=== PATIENT | male | born 1980 | race Caucasian/White ===

== ENCOUNTER 2018-08-07 14:51 | Emergency (ER) | payer MEDICAID ==
[~2018-08-07] VITALS: Ht 167.6 cm; Wt 93.3 kg
[2018-08-07 14:55] VITALS: BP 136/82; PULSE 71; RESP 18; Ht 167.6 cm; Wt 93.3 kg
[2018-08-07] MEDS ORDERED: FAMOTIDINE 20 MG TAB PO STA (15:26)
[2018-08-07] MEDS ORDERED: LIDOCAINE/MYLANTA 40 ML BTL PO STA (15:26)
[2018-08-07] MEDS ORDERED: ACETAMINOPHEN 325 MG TAB PO ONE (15:30)
[2018-08-07] MEDS ORDERED: ACET500C5 PO (16:36)
[2018-08-07] MEDS ORDERED: PANT40TA3 PO (16:36)
--- NOTE | 2018-08-07 16:38 | ERD ---
ER Documentation Chief Complaint Chief Complaint chest pain/epigastric pain x 20 days , worse today , no sob HPI 38-year-old male presents with lower chest pain or epigastric pain for the last 3 weeks. He is unable to characterize the pain but is possibly sharp. Denies any fevers, vomiting, abdominal pain, urinary complaints, diarrhea. He has not been seen for this prior. ROS All systems reviewed and are negative except as per history of present illness. Medications Home Meds Active Scripts Acetaminophen* (Tylophen*) 500 Mg Capsule, 1 CAP PO Q6H PRN for PAIN AND OR EL EVATED TEMP, #15 CAP Prov:VERÓNICA IBRAHIM MD 08/07/18 Pantoprazole* (Protonix*) 40 Mg Tablet.dr, 40 MG PO DAILY, #20 TAB Prov:VERÓNICA IBRAHIM MD 08/07/18 PMhx/Soc Medical and Surgical Hx: pt denies Medical Hx, pt denies Surgical Hx Hx Alcohol Use: No Hx Substance Use: No Hx Tobacco Use: No FmHx Family History: No diabetes, No coronary disease, No other Physical Exam Vitals Vital Signs Date Temp Pulse Resp B/P (MAP) Pulse Ox O2 O2 Flow FiO2 Time Delivery Rate 08/07/18 98.1 71 18 136/82 97 14:55 (100) Physical Exam Const: No acute distress Head: Atraumatic Eyes: Normal Conjunctiva ENT: Normal External Ears, Nose and Mouth. Neck: Full range of motion. No meningismus. Resp: Clear to auscultation bilaterally Cardio: Regular rate and rhythm, no murmurs Abd: Soft, normal tenderness in the epigastric and xiphoid area. No exquisite Forrester sign and no tenderness McBurney's point. No rebound or masses. Non distended. Normal bowel sounds Skin: No petechiae or rashes Back: No midline or flank tenderness Ext: No cyanosis, or edema Neur: Awake and alert Psych: Normal Mood and Affect Result Diagram: 08/07/18 1534 08/07/18 1534 Results 24 hrs Laboratory Tests Test 08/07/18 15:34 White Blood Count 7.4 10^3/ul Red Blood Count 4.97 10^6/ul Hemoglobin 14.6 g/dl Hematocrit 44.2 % Mean Corpuscular Volume 88.9 fl Mean Corpuscular Hemoglobin 29.4 pg Mean Corpuscular Hemoglobin Concent 33.0 g/dl Red Cell Distribution Width 11.9 % Platelet Count 202 10^3/UL Mean Platelet Volume 9.7 fl Immature Granulocytes % 0.300 % Neutrophils % 59.0 % Lymphocytes % 29.3 % Monocytes % 6.5 % Eosinophils % 3.9 % Basophils % 1.0 % Nucleated Red Blood Cells % 0.0 /100WBC Immature Granulocytes # 0.020 10^3/ul Neutrophils # 4.3 10^3/ul Lymphocytes # 2.2 10^3/ul Monocytes # 0.5 10^3/ul Eosinophils # 0.3 10^3/ul Basophils # 0.1 10^3/ul Nucleated Red Blood Cells # 0.0 10^3/ul Sodium Level 140 mmol/L Potassium Level 3.6 mmol/L Chloride Level 105 mmol/L Carbon Dioxide Level 27 mmol/L Anion Gap 8 Blood Urea Nitrogen 12 mg/dl Creatinine 0.96 mg/dl Est Glomerular Filtrat Rate mL/min > 60 mL/min Glucose Level 114 mg/dl Calcium Level 9.0 mg/dl Total Bilirubin 0.4 mg/dl Direct Bilirubin 0.00 mg/dl Indirect Bilirubin 0.4 mg/dl Aspartate Amino Transf (AST/SGOT) 23 IU/L Alanine Aminotransferase (ALT/SGPT) 35 IU/L Alkaline Phosphatase 67 IU/L Total Protein 7.2 g/dl Albumin 4.1 g/dl Globulin 3.10 g/dl Albumin/Globulin Ratio 1.32 Lipase 80 U/L Current Medications Medications Dose Sig/Rafaela Start Time Status Last (Trade) Ordered Route PRN Stop Time Admin Dose Reason Admin Famotidine 20 mg ONCE STAT 08/07/18 DC 08/07/18 (Pepcid) PO 15:26 15:34 08/07/18 15:28 40 ml ONCE STAT 08/07/18 DC 08/07/18 Miscellaneous PO 15:26 15:34 Medication 08/07/18 15:28 (Gi Cocktail (2)) 650 mg ONCE ONCE 08/07/18 DC 08/07/18 Acetaminophen PO 15:30 15:34 (Tylenol 08/07/18 15:31 Tab) Procedures/MDM EKG: Rate/Rhythm: Normal Sinus Rhythm. Rate equals 72 QRS, ST, T-waves: No changes consistent w/ acute ischemia Impression: No evidence of ischemia or arrhythmia Chest X-ray 1V Interpreted by me: Soft Tissue: No acute abnormalities Bones: No acute abnormalities Mediastinum/Cardiac Silhouette/Lungs: No acute abnormalities. Impression- normal 1 view chest x-ray Right upper quadrant ultrasound read as normal by the radiologist. BC and CMP and lipase normal. Presents with lower chest pain abdominal pain for last 3 weeks. He is noticed since symptoms of cardiac chest pain or acute coronary syndrome, surgical abdomen, pancreatitis, additional emergent cause of presenting complaints. He may have gastritis and will treat for this. Will treat with Protonix, Tylenol, primary care follow-up and return precautions. The patient was stable with no new complaints during the ER course. Clinically, there is no current evidence to suggest meningitis, sepsis, acute abdomen, pneumonia, stroke, acute coronary syndrome, pulmonary embolism, aortic dissection or any other emergent condition appearing to require further evaluation or hospitalization. Patient counseled regarding my diagnostic impression and care plan. Prior to discharge all questions answered. Pt agrees with treatment plan and understands strict return precautions. Pt is instructed to follow up with primary care provider within 24- 48 hours. Precautionary instructions provided including instructions to return to the ER if not improving or for any worsening or changing symptoms or concerns. Disclaimer: Inadvertent spelling and grammatical errors are likely due to EHR/dictation software use and do not reflect on the overall quality of patient care. Also, please note that the electronic time recorded on this note does not necessarily reflect the actual time of the patient encounter. Departure Diagnosis: Primary Impression: Abdominal pain Abdominal location: epigastric Qualified Codes: R10.13 - Epigastric pain Additional Impression: Chest pain Chest pain type: unspecified Qualified Codes: R07.9 - Chest pain, unspecified Condition: Stable Patient Instructions: Abdominal Pain, Gastritis (Adult) Additional Instructions: All examinations normal today. We will treat for gastritis. Recheck for new worsening symptoms with primary care doctor. Examines normal hoy. vamos a tratar para gastritis. Cheque otro vez con schuler doctor primario en el proximo riley or regresa para mas o nueva simptomas. VERÓNICA IBRAHIM MD Aug 07, 2018 16:38
== END 2018-08-07 17:01 | disposition home or self-care (01) ==
LOC: FTE 14:51
DX: R07.9 Chest pain, unspecified (principal); R10.13 Epigastric pain
CPT/HCPCS: 71045; 76705; 80053; 83690; 85025; 93005; Z7610; 36415